=== PATIENT | male | born 1955 | race Hispanic/Latino ===

== ENCOUNTER → 2020-03-07 | Outpatient (CLI) | payer MEDICARE ==
--- NOTE | 2020-03-07 10:59 | Diagnostic Imaging Report ---
MRI SPINE CERVICAL WO HISTORY: Neck pain, bilateral hand numbness COMPARISON: None. TECHNIQUE: Sagittal T1, sagittal T2, sagittal inversion recovery, axial T2 and axial T1 weighted MR images of the cervical spine were obtained without intravenous contrast. DISCUSSION: ACDF changes from C5 to C7 are present. Hardware susceptibility artifacts obscure some details. Susceptibility artifact along the anterior face also distorts some images. Alignment: Normal lordosis. No scoliosis. Vertebrae: No definite evidence for fractures, infection, or neoplasm. Cervicomedullary junction: No abnormalities. Spinal cord: The ventral cord is mildly flattened by disc at C3-C4 and C4-C5. The cord is otherwise normal in signal and morphology from the foramen magnum through T3-T4. Soft tissues: No signal abnormalities. There is mild disc degeneration above the fusion levels. 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 C2-C3: Patent canal and foramina. C3-C4: Mild canal stenosis due to posterior disc osteophyte complex and ligamentum flavum thickening. No significant foraminal stenosis. C4-C5: Mild to moderate canal stenosis due to posterior disc osteophyte complex and ligamentum flavum thickening. Mild bilateral foraminal stenoses, right greater than left, due to uncovertebral and facet arthrosis. C5-C6: Fusion level without significant canal stenosis. Mild bilateral foraminal stenoses due to uncovertebral and facet arthrosis. C6-C7: Fusion level without significant canal stenosis. Mild right foraminal stenosis due to uncovertebral and facet arthrosis. No significant left foraminal stenosis. C7-T1: Patent canal and foramina. IMPRESSION: 1. ACDF changes from C5 to C7. 2. Mild disc degeneration above the fusion levels. 3. Mild to moderate C4-C5 and mild C3-C4 degenerative canal stenoses. 4. Mild multilevel bilateral degenerative foraminal stenoses as described above. Signed by: Dr. Yoandy Kaur M.D. on 03/07/2020 10:56 AM
== END ==
LOC: MRI 08:42
PROVIDERS: ATTEND Internal Medicine Cardiovascular Disease
DX: M54.12 Radiculopathy, cervical region (principal)
CPT/HCPCS: 72141

== ENCOUNTER → 2020-03-14 | Outpatient (CLI) | payer MEDICARE | LOC: NM 08:51 | PROVIDERS: ATTEND Internal Medicine Cardiovascular Disease | DX: R07.9 Chest pain, unspecified (principal) | CPT/HCPCS: 78452; 93017; A9502 ==